=== PATIENT | female | born 1970 | race Caucasian/White ===

== ENCOUNTER 2021-05-31 05:00 | Day surgery (SDC) | payer OTHER ==
[~2021-05-31 05:00] MED LIST: ALLEG PO; CLONAZE PO; SINGULAIR10 MG PO; TRAZO PO; ZOCO PO; [UNRECOGNIZED DRUG - OTHER] PO
[2021-05-31] MEDS ORDERED: CEFADROXIL500 MG PO (11:29)
[2021-05-31] MEDS ORDERED: ULTRACET PO (11:29)
== END 2021-05-31 15:40 | disposition home or self-care (01) ==
LOC: CIR.AMB 05:00
PROVIDERS: ATTEND Orthopaedic Surgery Sports Medicine
DX: S83.282A Other tear of lateral meniscus, current injury, left knee, initial encounter (principal); Z88.8 Allergy status to other drugs, medicaments and biological substances; J45.909 Unspecified asthma, uncomplicated; I25.10 Atherosclerotic heart disease of native coronary artery without angina pectoris; Z95.5 Presence of coronary angioplasty implant and graft; K29.70 Gastritis, unspecified, without bleeding